=== PATIENT | male | born 1930 | race Caucasian/White ===

== ENCOUNTER 2016-11-04 16:00 | Inpatient (IN) | payer OTHER, MEDICARE ==
[2016-11-03 19:53] VITALS: BP 130/62; PULSE 82; RESP 16; TEMP 98.4; O2SAT 92
[~2016-11-04] VITALS: Ht 170.2 cm; Wt 71.3 kg
[2016-11-04 16:06] VITALS: BP 133/61; PULSE 68; RESP 17; TEMP 98.2; O2SAT 94
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
[2016-11-04] MEDS ORDERED: ONDANSETRON HCL 4 MG/2 ML VIAL IV ONE (16:30)
[2016-11-04] MEDS ORDERED: MORPHINE SULFATE 4 MG/ML INJ IV PUSH ONE (16:30)
[2016-11-04 16:50] LABS: AUTOMATED NEUTROPHIL # 6.9 TH/MM3 (1.8-7.7); BASOPHIL # 0.1 TH/MM3 (0-0.2); BASOPHIL % 1.8 % (0.0-2.0); EOSINOPHIL # 0.1 TH/MM3 (0-0.4); EOSINOPHIL % 1.3 % (0.0-4.0); HEMATOCRIT 40.1 % (39.0-51.0); LYMPH % 7.2 % (9.0-44.0); LYMPHOCYTE # 0.6 TH/MM3 (1.0-4.8); MEAN CELL VOLUME 86.9 FL (80.0-100.0); MEAN CORPUSCULAR HEMOGLOBIN 31.1 PG (27.0-34.0); MEAN CORPUSCULAR HGB CONC 35.9 % (32.0-36.0); MONO % 4.6 % (0.0-8.0); NEUT % 85.1 % (16.0-70.0); PLATELET COUNT 155 TH/MM3 (150-450); PROTHROMBIN TIME - PATIENT 10.8 SEC (9.8-11.6); RED BLOOD COUNT 4.61 MIL/MM3 (4.50-5.90); WHITE BLOOD COUNT 8.1 TH/MM3 (4.0-11.0)
--- NOTE | 2016-11-04 16:51 | RADRPT ---
EXAM DATE/TIME: 11/04/2016 16:22 [facility] COMPARISON: No previous studies available for comparison. INDICATIONS : Left hip pain after fall today. MEDICAL HISTORY : None. SURGICAL HISTORY : None. ENCOUNTER: Initial ACUITY: 1 day PAIN SCORE: 10/10 LOCATION: Left hip. FINDINGS: 5 images of the pelvis reveale anacute fracture involving the left hemipelvis. The fracture extends t hrough the acetabulum and ischium. No acetabular protrusio appreciated. Femoral heads remain in conta ct with the acetabula. A nondisplaced left inferior pubic ramus fracture noted. Calcified plaque invo lving the inflow vessels. Normal bowel gas pattern. CONCLUSION: 1. Acute fractures involving the left hemipelvis as detailed above. Alexandro Cervantes Jr., MD on November 04, 2016 at 16:48 Board Certified Radiologist. This report was verified electronically.
[2016-11-04 16:54] LABS: HEMO FLAGS DIFF FINAL
[2016-11-04 17:00] LABS: ALT (GPT) 22 U/L (12-78); ANION GAP 10 MEQ/L (5-15); AST (GOT) 20 U/L (15-37); BICARBONATE 21.4 MEQ/L (21.0-32.0); BLOOD UREA NITROGEN 11 MG/DL (7-18); CHLORIDE 104 MEQ/L (98-107); GLOMERULAR FILTRATION RATE 60 ML/MIN (>89); POTASSIUM 3.4 MEQ/L (3.5-5.1); SODIUM (NA) 135 MEQ/L (136-145)
[2016-11-04 17:01] LABS: ALKALINE PHOSPHATASE 123 U/L (45-117); TOTAL BILIRUBIN ADULT 0.9 MG/DL (0.2-1.0)
[2016-11-04] MEDS ORDERED: ONDANSETRON HCL 4 MG/2 ML VIAL IV PUSH PRN (18:15)
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
[2016-11-04] MEDS ORDERED: POTASSIUM CHLORIDE 20 MEQ CONTROLLED RELEASE TAB PO ONE (18:30)
[2016-11-04] MEDS ORDERED: HYDROmorphone HCL PF 1 MG/ML VIAL IV PUSH PRN (18:30)
[2016-11-04] MEDS ORDERED: ACETAMINOPHEN 325 MG TAB PO PRN (18:30)
[2016-11-04 18:42] VITALS: BP 133/59; PULSE 69; O2SAT 99
[2016-11-04] MEDS ORDERED: AMLO5TAB2 PO (19:02)
[2016-11-04] MEDS ORDERED: EQUALIQ7 (19:02)
[2016-11-04] MEDS ORDERED: ASPI1TAB69 PO (19:02)
[2016-11-04] MEDS ORDERED: ATOR40TA16 PO (19:02)
[2016-11-04] MEDS ORDERED: ATEN50TA PO (19:02)
[2016-11-04] MEDS: SODIUM CHLOR 0.9% 1000 ML INJ 1,000 ML IV SCH (19:39)
[2016-11-04] MEDS: HYDROmorphone HCL PF 1 MG/ML VIAL IV PUSH PRN (19:40)
[2016-11-04 19:41] VITALS: BP 123/60; PULSE 78; RESP 18; O2SAT 95
--- NOTE | 2016-11-04 20:26 | RADRPT ---
EXAM DATE/TIME: 11/04/2016 19:04 [facility] COMPARISON: HIP LEFT (AP&LAT 2/3VWS) W AP PELVIS, November 04, 2016, 16:22. INDICATIONS : Fall evaluate fracture. RADIATION DOSE: 32.70 CTDIvol (mGy) MEDICAL HISTORY : Cerebrovascular disease. Chronic obstructive pulmonary disease. Hypertension. Cardiac SURGICAL HISTORY : None. ENCOUNTER: Initial ACUITY: 1 day PAIN SCALE: 10/10 LOCATION: Left hip TECHNIQUE: Volumetric scanning of the hip was performed. Using automated exposure control and ad justment of the mA and/or kV according to patient size, radiation dose was kept as low as reasonably achievable to obtain optimal diagnostic quality images. FINDINGS: There is fracturing throughout the left pelvis. This includes fractures through the il ium that extends into the superior acetabulum. This fracture continues into the anterior and posteri or columns. There is also extension into the posterior left ischium. There is a separate fracture a t the midportion of the inferior pubic rami on the left. The hip joint is normally aligned. The pro ximal femurs are intact. No right-sided fractures are seen. There is some degenerative change at th e lower lumbar spine. The sacrum appears intact. CONCLUSION: Extensive fracturing of the left pelvis including to the superior aspect of the aceta bulum with extension to the anterior and posterior column and a separate fracture at the midportion o f the inferior pubic rami on the left. Arjun yDer MD on November 04, 2016 at 20:08 Board Certified Radiologist. This report was verified electronically.
[2016-11-05] VITALS (7 sets, daily range): BP systolic 112–131; BP diastolic 55–61; PULSE 61–76; RESP 16–18; TEMP 98.1–99.6; O2SAT 91–93
[2016-11-05] MEDS: HYDROmorphone HCL PF 1 MG/ML VIAL IV PUSH PRN ×2 (00:20→06:17)
[2016-11-05] MEDS ORDERED: WHEEMIS3 (06:37)
[2016-11-05] MEDS ORDERED: XARE10TA PO (06:37)
[2016-11-05] MEDS ORDERED: VITA2000 PO (06:37)
[2016-11-05] MEDS ORDERED: HYDR-3288 PO (06:37)
[2016-11-05] MEDS ORDERED: CALCTAB19 PO (06:37)
[2016-11-05] MEDS ORDERED: WALKER/ADULT/FO1 MIS (06:37)
[2016-11-05] MEDS ORDERED: ERGO1CAP30 PO (06:37)
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
[2016-11-05] MEDS: SODIUM CHLOR 0.9% 1000 ML INJ 1,000 ML IV SCH ×2 (08:20→09:48)
[2016-11-05] MEDS: RIVAROXABAN 10 MG TAB PO SCH (08:29)
[2016-11-05] MEDS: ACETAMINOPHEN/HYDROcodone 325 MG/7.5 MG TAB PO PRN ×3 (09:37→19:48)
--- NOTE | 2016-11-05 11:22 | HHI.PR ---
Subjective Remarks in no acute distress. pain is better today. no other new complaints. Objective Vitals Vital Signs Date Time Temp Pulse Resp B/P Pulse Ox O2 Delivery O2 Flow Rate FiO2 11/05/16 08:00 98.8 76 18 116/56 91 11/05/16 04:30 99.6 64 16 114/56 91 11/05/16 00:50 99.4 74 16 119/58 91 11/04/16 19:41 78 18 123/60 95 Room Air 11/04/16 18:42 69 133/59 99 Room Air 11/04/16 16:11 94 Nasal Cannula 11/04/16 16:06 98.2 68 17 133/61 94 I/O 11/04/16 11/04/16 11/04/16 11/05/16 11/05/16 11/05/16 07:00 15:00 23:00 07:00 15:00 23:00 Intake Total 120 ml Output Total 200 ml Balance -80 ml Intake Oral 120 ml Output Urine Total 200 ml # Bowel Movements 0 Result Diagram: 11/04/16 1620 11/04/16 1620 Imaging Last Impressions Lower Extremity CT 11/04/16 0000 Signed Impressions: Service Date/Time: Friday, November 04, 2016 19:04 - CONCLUSION: Extensive fracturing of the left pelvis including to the superior aspect of the acetabulum with extension to the anterior and posterior column and a separate fracture at the midportion of the inferior pubic rami on the left. Arjun Dyer MD Hip and Pelvis X-Ray 11/04/16 0000 Signed Impressions: Service Date/Time: Friday, November 04, 2016 16:22 - CONCLUSION: 1. Acute fractures involving the left hemipelvis as detailed above. Alexandro Cervantes Jr., MD Objective Remarks GENERAL: This is a well-nourished, well-developed patient, in no apparent distress. CARDIOVASCULAR: Regular rate and regular rhythm without murmurs, gallops, or rubs. RESPIRATORY: Clear to auscultation. Breath sounds equal bilaterally. No wheezes , rales, or rhonchi. GASTROINTESTINAL: Abdomen soft, non-tender, nondistended. Normal, active bowel sounds MUSCULOSKELETAL: Extremities without clubbing, cyanosis, or edema. NEURO: Alert & Oriented x4 to person, place, time, situation. Moves all ext x4 Procedures none Medications and IVs Current Medications Morphine Sulfate (Morphine Inj) 4 mg ONCE ONCE IV PUSH Last administered on 17:45; Start 11/04/16 at 16:30; Stop 11/04/16 at 16:31; Status DC Ondansetron HCl 4 mg 4 mg ONCE ONCE IV Last administered on 11/04/16 17:45; Start 11/04/16 at 16:30; Stop 11/04/16 at 16:31; Status DC Sodium Chloride (NS 1000 ml Inj) 1,000 ml @ 75 mls/hr [id number] IV Last administered on 11/04/16 19:39; Start 11/04/16 at 19:00 Ondansetron HCl (Zofran Inj) 4 mg Q8HR PRN IV PUSH NAUSEA; Start 11/04/16 at 18: 15 Hydromorphone HCl (Dilaudid Pf Inj) 0.2 mg Q4H PRN IV PUSH PAIN < 5; Start 11/04 at 18:30 Hydromorphone HCl (Dilaudid Pf Inj) 0.5 mg Q4H PRN IV PUSH PAIN 6-10 Last administered on 11/05/16 06:17; Start 11/04/16 at 18:30 Potassium Chloride (KCl) 20 meq ONCE ONCE PO Last administered on 11/04/16 19: 39; Start 11/04/16 at 18:30; Stop 11/04/16 at 18:31; Status DC Acetaminophen (Tylenol) 650 mg Q4H PRN PO FEVER/ HEADACHE; Start 11/04/16 at 18: 30 Rivaroxaban (Xarelto) 10 mg DAILY PO Last administered on 11/05/16 08:29; Start 11/05/16 at 09:00 Acetaminophen/ Hydrocodone Bitart (Gilchrist 7.5-325 Mg) 1 tab Q4H PRN PO PAIN 1- 5 Last administered on 11/05/16 09:37; Start 11/05/16 at 09:30 A/P Assessment and Plan A/P - left hemipelvis fracture after a fall continue with pain control- - ortho consulted and recommended non-op treatment. TTWB- consulted PT- -hypertension; BP's on low side; hold norvasc and decrease atenolol to 25 mg daily- continue to monitor and adjust the regimen as needed. -history of CVA and dyslipidemia hold aspirin; started on xarelto- continue statin -mild hypokalemia; will replace -DVT prophylaxis with Xarelto-per ortho Discharge Planning when ok with ortho- pending PT evaluation. Lisbet Wallace MD November 05, 2016 11:22
[2016-11-05] MEDS: ATORVASTATIN 40 MG TAB PO SCH (19:46)
[2016-11-05] MEDS ORDERED: CALCIUM/VITAMIN D 250 MG/125 U TAB PO SCH (21:00)
[2016-11-05] MEDS: CALCIUM/VITAMIN D 250 MG/125 U TAB PO SCH (21:58)
[2016-11-06 00:35] VITALS: BP 128/56; PULSE 66; RESP 18; TEMP 98.4; O2SAT 96
[2016-11-06] MEDS: ACETAMINOPHEN/HYDROcodone 325 MG/7.5 MG TAB PO PRN ×3 (04:21→22:24)
--- NOTE | 2016-11-06 06:26 | PD.ORT.PN ---
Subjective Subjective Remarks s/p left acetabulum fx with left sup/inf rami fxs doing well. reports soreness in hip. states was out of bed to chair yesterday. Objective Vitals Vital Signs Date Time Temp Pulse Resp B/P Pulse Ox O2 Delivery O2 Flow Rate FiO2 11/06/16 00:35 98.4 66 18 128/56 96 11/05/16 21:15 18 93 11/05/16 20:30 98.8 61 17 112/55 91 11/05/16 16:00 98.1 61 18 112/56 91 11/05/16 12:00 98.3 62 18 131/61 93 11/05/16 08:00 98.8 76 18 116/56 91 I/O 11/05/16 11/05/16 11/05/16 11/06/16 11/06/16 11/06/16 07:00 15:00 23:00 07:00 15:00 23:00 Intake Total 120 ml 1200 ml 480 ml 240 ml Output Total 200 ml 250 ml 250 ml Balance -80 ml 1200 ml 230 ml -10 ml Intake Oral 120 ml 1200 ml 480 ml 240 ml Output Urine Total 200 ml 250 ml 250 ml # Voids 2 # Bowel Movements 0 0 0 0 Result Diagram: 11/04/16 1620 11/04/16 1620 Objective Remarks LLE: pain with motion. NVI. minimal swelling. Assessment & Plan Assessment and Plan 1) left Acetabulum fx with left sup/inf rami fxs -nonop -TTWB -DC planning for home to [place] -PT for ambulating -will eval for possible DC home later this week. likely next week depending on progress. -normal diet -xarelto 10mg 1 po daily scheduled -continue to work with therapy. if doing well with therapy and pain controlled, will be able to be discharged home to [place]. if struggling, may require rehab Seth Duque November 06, 2016 06:26
[2016-11-06 08:00] VITALS: BP 135/56; PULSE 69; RESP 18; TEMP 98.9; O2SAT 90
[2016-11-06] MEDS: CALCIUM/VITAMIN D 250 MG/125 U TAB PO SCH ×2 (08:42→19:41)
[2016-11-06] MEDS: ATENOLOL 25 MG TAB PO SCH (08:43)
[2016-11-06] MEDS: RIVAROXABAN 10 MG TAB PO SCH (08:44)
[2016-11-06] MEDS: CHOLECALCIFEROL (VIT D3) 1000 UNIT TAB PO SCH (08:44)
--- NOTE | 2016-11-06 10:50 | HHI.PR ---
Subjective Remarks in no acute distress. pain is fairly controlled. no BM. no other complaints. family at the bedside. d/w the RN. Objective Vitals Vital Signs Date Time Temp Pulse Resp B/P Pulse Ox O2 Delivery O2 Flow Rate FiO2 11/06/16 08:00 98.9 69 18 135/56 90 11/06/16 00:35 98.4 66 18 128/56 96 11/05/16 21:15 18 93 11/05/16 20:30 98.8 61 17 112/55 91 11/05/16 16:00 98.1 61 18 112/56 91 11/05/16 12:00 98.3 62 18 131/61 93 I/O 11/05/16 11/05/16 11/05/16 11/06/16 11/06/16 11/06/16 07:00 15:00 23:00 07:00 15:00 23:00 Intake Total 120 ml 1200 ml 480 ml 240 ml Output Total 200 ml 250 ml 250 ml Balance -80 ml 1200 ml 230 ml -10 ml Intake Oral 120 ml 1200 ml 480 ml 240 ml Output Urine Total 200 ml 250 ml 250 ml # Voids 2 # Bowel Movements 0 0 0 0 Result Diagram: 11/04/16 1620 11/04/16 1620 Imaging Last Impressions Lower Extremity CT 11/04/16 0000 Signed Impressions: Service Date/Time: Friday, November 04, 2016 19:04 - CONCLUSION: Extensive fracturing of the left pelvis including to the superior aspect of the acetabulum with extension to the anterior and posterior column and a separate fracture at the midportion of the inferior pubic rami on the left. Arjun Dyer MD Hip and Pelvis X-Ray 11/04/16 0000 Signed Impressions: Service Date/Time: Friday, November 04, 2016 16:22 - CONCLUSION: 1. Acute fractures involving the left hemipelvis as detailed above. Alexandro Cervantes Jr., MD Objective Remarks GENERAL: elderly male, in no apparent distress. CARDIOVASCULAR: Regular rate and regular rhythm without murmurs, gallops, or rubs. RESPIRATORY: Clear to auscultation. Breath sounds equal bilaterally. No wheezes , rales, or rhonchi. GASTROINTESTINAL: Abdomen soft, non-tender, nondistended. Normal, active bowel sounds MUSCULOSKELETAL: Extremities without clubbing, cyanosis, or edema. NEURO: Alert & Oriented x4 to person, place, time, situation. Moves all ext x4 Procedures none Medications and IVs Current Medications Morphine Sulfate (Morphine Inj) 4 mg ONCE ONCE IV PUSH Last administered on 17:45; Start 11/04/16 at 16:30; Stop 11/04/16 at 16:31; Status DC Ondansetron HCl 4 mg 4 mg ONCE ONCE IV Last administered on 11/04/16 17:45; Start 11/04/16 at 16:30; Stop 11/04/16 at 16:31; Status DC Sodium Chloride (NS 1000 ml Inj) 1,000 ml @ 75 mls/hr [id number] IV Last administered on 11/04/16 19:39; Start 11/04/16 at 19:00; Stop 11/05/16 at 11:24; Status DC Ondansetron HCl (Zofran Inj) 4 mg Q8HR PRN IV PUSH NAUSEA; Start 11/04/16 at 18: 15 Hydromorphone HCl (Dilaudid Pf Inj) 0.2 mg Q4H PRN IV PUSH BREAKTHROUGH PAIN; Start 11/04/16 at 18:30 Hydromorphone HCl (Dilaudid Pf Inj) 0.5 mg Q4H PRN IV PUSH PAIN 6-10 Last administered on 11/05/16 06:17; Start 11/04/16 at 18:30; Stop 11/05/16 at 11:25; Status DC Potassium Chloride (KCl) 20 meq ONCE ONCE PO Last administered on 11/04/16 19: 39; Start 11/04/16 at 18:30; Stop 11/04/16 at 18:31; Status DC Acetaminophen (Tylenol) 650 mg Q4H PRN PO FEVER/ HEADACHE; Start 11/04/16 at 18: 30 Rivaroxaban (Xarelto) 10 mg DAILY PO Last administered on 11/06/16 08:44; Start 11/05/16 at 09:00 Acetaminophen/ Hydrocodone Bitart ([place] 7.5-325 Mg) 1 tab Q4H PRN PO PAIN 1- 5 Last administered on 11/05/16 09:37; Start 11/05/16 at 09:30 Atorvastatin Calcium (Lipitor) 40 mg HS PO Last administered on 11/05/16 19:46 ; Start 11/05/16 at 21:00 Cholecalciferol (Vitamin D3) 2,000 units DAILY PO Last administered on 08:44; Start 11/06/16 at 09:00 Calcium/Vitamin D (Oscal-D 250-125) 2 mg BID PO ; Start 11/05/16 at 21:00; Stop 11/05/16 at 21:52; Status DC Atenolol (Tenormin) 25 mg DAILY PO Last administered on 11/06/16 08:43; Start 11/06/16 at 09:00 Acetaminophen/ Hydrocodone Bitart ([place] 7.5-325 Mg) 2 tab Q4H PRN PO PAIN > 5 Last administered on 11/06/16 08:45; Start 11/05/16 at 11:30 Calcium/Vitamin D (Oscal-D 250-125) 500 mg BID PO Last administered on 08:42; Start 11/05/16 at 22:00 A/P Assessment and Plan A/P - left hemipelvis fracture after a fall continue with pain control- - ortho consulted and recommended non-op treatment. TTWB- consulted PT- -hypertension; BP's on low side; continue to hold norvasc - continue atenolol to 25 mg daily- continue to monitor and adjust the regimen as needed. -history of CVA and dyslipidemia hold aspirin; started on xarelto- continue statin -mild hypokalemia; replaced. -DVT prophylaxis with Xarelto-per ortho Discharge Planning d/w the family at the bedside. will consult case management for dc planning to rehab. Lisbet Wallace MD November 06, 2016 10:50
[2016-11-06] MEDS ORDERED: ATEN25TA PO (10:52)
[2016-11-06] MEDS ORDERED: MAGNESIUM HYDROXIDE SUSP 30 ML CUP PO PRN (11:00)
[2016-11-06] MEDS ORDERED: DOCUSATE SODIUM 100 MG CAP PO PRN (11:00)
[2016-11-06 12:00] VITALS: BP 149/61; PULSE 83; RESP 18; TEMP 97.5; O2SAT 90
[2016-11-06 16:00] VITALS: BP 150/63; PULSE 62; RESP 18; TEMP 97.6; O2SAT 92
[2016-11-06] MEDS: ATORVASTATIN 40 MG TAB PO SCH (19:40)
[2016-11-06 20:04] VITALS: BP 142/63; PULSE 61; RESP 18; TEMP 98.5; O2SAT 92
[2016-11-07] VITALS: BP 117/54; PULSE 62; RESP 17; TEMP 98.8; O2SAT 93
[2016-11-07] MEDS: ACETAMINOPHEN/HYDROcodone 325 MG/7.5 MG TAB PO PRN ×3 (05:54→18:00)
--- NOTE | 2016-11-07 06:41 | PD.ORT.PN ---
Subjective Subjective Remarks Pain controlled. Worked with physical therapy yesterday. Difficulty ambulating with toe-touch weightbearing Objective Vitals Vital Signs Date Time Temp Pulse Resp B/P Pulse Ox O2 Delivery O2 Flow Rate FiO2 11/07/16 00:00 98.8 62 17 117/54 93 11/06/16 21:22 Nasal Cannula 2.00 11/06/16 20:04 98.5 61 18 142/63 92 11/06/16 16:00 97.6 62 18 150/63 92 11/06/16 12:00 97.5 83 18 149/61 90 11/06/16 08:00 98.9 69 18 135/56 90 I/O 11/06/16 11/06/16 11/06/16 11/07/16 11/07/16 11/07/16 07:00 15:00 23:00 07:00 15:00 23:00 Intake Total 240 ml 980 ml 480 ml 360 ml Output Total 250 ml 300 ml Balance -10 ml 980 ml 480 ml 60 ml Intake Oral 240 ml 980 ml 480 ml 360 ml Output Urine Total 250 ml 300 ml # Voids 3 2 # Bowel Movements 0 0 Result Diagram: 11/04/16 1620 11/04/16 1620 Objective Remarks Left lower extremity: Pain with motion of hip. No pain with ankle or knee range of motion. Distally intact sensation with good capillary refills. Strong dorsiflexion plantar flexion of foot Assessment & Plan Assessment and Plan 1) left Acetabulum fx with left sup/inf rami fxs -nonop -TTWB -DC planning to rehabilitation then to home in [place] -PT for ambulating -normal diet -xarelto 10mg 1 po daily scheduled Orthopedically cleared for discharge to rehabilitation If still in town in 2 weeks we will re-x-ray and evaluate acetabulum fracture Manuel Chaudhari Jr. November 07, 2016 06:41
[2016-11-07 08:00] VITALS: BP 119/58; PULSE 62; RESP 12; TEMP 99.1; O2SAT 91
[2016-11-07] MEDS: CALCIUM/VITAMIN D 250 MG/125 U TAB PO SCH ×2 (08:21→20:37)
[2016-11-07] MEDS: RIVAROXABAN 10 MG TAB PO SCH (08:21)
[2016-11-07] MEDS: ATENOLOL 25 MG TAB PO SCH (08:26)
[2016-11-07] MEDS: CHOLECALCIFEROL (VIT D3) 1000 UNIT TAB PO SCH (08:35)
--- NOTE | 2016-11-07 08:43 | HHI.PR ---
Subjective Remarks resting comfortably with no distress. pain is fairly controlled. no other complaints. Objective Vitals Vital Signs Date Time Temp Pulse Resp B/P Pulse Ox O2 Delivery O2 Flow Rate FiO2 11/07/16 08:00 99.1 62 12 119/58 91 11/07/16 00:00 98.8 62 17 117/54 93 11/06/16 21:22 Nasal Cannula 2.00 11/06/16 20:04 98.5 61 18 142/63 92 11/06/16 16:00 97.6 62 18 150/63 92 11/06/16 12:00 97.5 83 18 149/61 90 I/O 11/06/16 11/06/16 11/06/16 11/07/16 11/07/16 11/07/16 07:00 15:00 23:00 07:00 15:00 23:00 Intake Total 240 ml 980 ml 480 ml 360 ml Output Total 250 ml 300 ml Balance -10 ml 980 ml 480 ml 60 ml Intake Oral 240 ml 980 ml 480 ml 360 ml Output Urine Total 250 ml 300 ml # Voids 3 2 # Bowel Movements 0 0 Result Diagram: 11/04/16 1620 11/04/16 1620 Imaging Last Impressions Lower Extremity CT 11/04/16 0000 Signed Impressions: Service Date/Time: Friday, November 04, 2016 19:04 - CONCLUSION: Extensive fracturing of the left pelvis including to the superior aspect of the acetabulum with extension to the anterior and posterior column and a separate fracture at the midportion of the inferior pubic rami on the left. Arjun Dyer MD Hip and Pelvis X-Ray 11/04/16 0000 Signed Impressions: Service Date/Time: Friday, November 04, 2016 16:22 - CONCLUSION: 1. Acute fractures involving the left hemipelvis as detailed above. Alexandro Cervantes Jr., MD Objective Remarks GENERAL: elderly male, in no apparent distress. CARDIOVASCULAR: Regular rate and regular rhythm without murmurs, gallops, or rubs. RESPIRATORY: Clear to auscultation. Breath sounds equal bilaterally. No wheezes , rales, or rhonchi. GASTROINTESTINAL: Abdomen soft, non-tender, nondistended. Normal, active bowel sounds MUSCULOSKELETAL: Extremities without clubbing, cyanosis, or edema. NEURO: Alert & Oriented x4 to person, place, time, situation. Moves all ext x4 Procedures none Medications and IVs Current Medications Morphine Sulfate (Morphine Inj) 4 mg ONCE ONCE IV PUSH Last administered on 17:45; Start 11/04/16 at 16:30; Stop 11/04/16 at 16:31; Status DC Ondansetron HCl 4 mg 4 mg ONCE ONCE IV Last administered on 11/04/16 17:45; Start 11/04/16 at 16:30; Stop 11/04/16 at 16:31; Status DC Sodium Chloride (NS 1000 ml Inj) 1,000 ml @ 75 mls/hr [id number] IV Last administered on 11/04/16 19:39; Start 11/04/16 at 19:00; Stop 11/05/16 at 11:24; Status DC Ondansetron HCl (Zofran Inj) 4 mg Q8HR PRN IV PUSH NAUSEA; Start 11/04/16 at 18: 15 Hydromorphone HCl (Dilaudid Pf Inj) 0.2 mg Q4H PRN IV PUSH BREAKTHROUGH PAIN; Start 11/04/16 at 18:30 Hydromorphone HCl (Dilaudid Pf Inj) 0.5 mg Q4H PRN IV PUSH PAIN 6-10 Last administered on 11/05/16 06:17; Start 11/04/16 at 18:30; Stop 11/05/16 at 11:25; Status DC Potassium Chloride (KCl) 20 meq ONCE ONCE PO Last administered on 11/04/16 19: 39; Start 11/04/16 at 18:30; Stop 11/04/16 at 18:31; Status DC Acetaminophen (Tylenol) 650 mg Q4H PRN PO FEVER/ HEADACHE; Start 11/04/16 at 18: 30 Rivaroxaban (Xarelto) 10 mg DAILY PO Last administered on 11/06/16 08:44; Start 11/05/16 at 09:00 Acetaminophen/ Hydrocodone Bitart ([place] 7.5-325 Mg) 1 tab Q4H PRN PO PAIN 1- 5 Last administered on 11/07/16 05:54; Start 11/05/16 at 09:30 Atorvastatin Calcium (Lipitor) 40 mg HS PO Last administered on 11/06/16 19:40 ; Start 5/3/17 at 21:00 Cholecalciferol (Vitamin D3) 2,000 units DAILY PO Last administered on 08:44; Start 11/06/16 at 09:00 Calcium/Vitamin D (Oscal-D 250-125) 2 mg BID PO ; Start 11/05/16 at 21:00; Stop 11/05/16 at 21:52; Status DC Atenolol (Tenormin) 25 mg DAILY PO Last administered on 11/06/16 08:43; Start 11/06/16 at 09:00 Acetaminophen/ Hydrocodone Bitart ([place] 7.5-325 Mg) 2 tab Q4H PRN PO PAIN > 5 Last administered on 11/06/16 08:45; Start 11/05/16 at 11:30 Calcium/Vitamin D (Oscal-D 250-125) 500 mg BID PO Last administered on 19:41; Start 11/05/16 at 22:00 Docusate Sodium (Colace) 100 mg BID PRN PO CONSTIPATION; Start 11/06/16 at 11:00 Magnesium Hydroxide (Milk Of MagnCampanda Liq) 30 ml DAILY PRN PO CONSTIPATION Last administered on 11/07/16 05:54; Start 11/06/16 at 11:00 A/P Assessment and Plan A/P - left hemipelvis fracture after a fall continue with pain control- - ortho consulted and recommended non-op treatment. TTWB- consulted PT- -hypertension; continue to hold norvasc - continue atenolol to 25 mg daily- -history of CVA and dyslipidemia hold aspirin; started on xarelto- continue statin -mild hypokalemia; replaced. -DVT prophylaxis with Xarelto-per ortho Discharge Planning previously d/w the family. dc to SNF when arrangements made. see med list. f/u with pcp and ortho. d/w the patient and case management. time spent 35 min. Lisbet Wallace MD November 07, 2016 08:43
--- NOTE | 2016-11-07 08:44 | HHI.DCPOC ---
Discharge Care Plan Diagnosis: (1) Fracture, pelvis closed Your Health Problems Are: Difficulty with ADL Goals to Promote Your Health * To prevent worsening of your condition and complications * To maintain your health at the optimal level Directions to Meet Your Goals Take your medications as prescribed Follow your dietary instruction Follow activity as directed Keep your appointments as scheduled Take your immunizations and boosters as scheduled If your symptoms worsen call your PCP, if no PCP go to Urgent Care Center or Emergency Room Smoking is Dangerous to Your Health. Avoid second hand smoke Call the 24-hour hour crisis hotline for domestic abuse at Lisbet Wallace MD November 07, 2016 08:44
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
[2016-11-07] MEDS ORDERED: BISACODYL 10 MG SUPP RECTAL PRN (11:45)
[2016-11-07] MEDS ORDERED: BISACODYL 10 MG SUPP RECTAL ONE (11:45)
[2016-11-07 12:00] VITALS: BP 167/74; PULSE 67; RESP 19; TEMP 96.6; O2SAT 92
[2016-11-07] MEDS ORDERED: DO NOT ADM ANY ANTICOAGULANT DRUGS PRN (12:00)
[2016-11-07 16:00] VITALS: BP 151/66; PULSE 62; RESP 14; TEMP 98.5; O2SAT 91
[2016-11-07 19:00] VITALS: BP 153/63; PULSE 64; RESP 17; TEMP 99.5; O2SAT 93
[2016-11-07] MEDS: ATORVASTATIN 40 MG TAB PO SCH (20:37)
[2016-11-07 23:39] VITALS: BP 111/56; PULSE 62; RESP 17; TEMP 98.8; O2SAT 93
[2016-11-08] MEDS: ACETAMINOPHEN/HYDROcodone 325 MG/7.5 MG TAB PO PRN ×5 (03:00→21:59)
[2016-11-08 04:00] VITALS: BP 135/62; PULSE 64; RESP 19; TEMP 99.5; O2SAT 92
--- NOTE | 2016-11-08 06:51 | PD.ORT.PN ---
Subjective Subjective Remarks Pain controlled. Worked with physical therapy yesterday. Difficulty ambulating with toe-touch weightbearing. States that he thinks he will be discharged to rehabilitation on Thursday Objective Vitals Vital Signs Date Time Temp Pulse Resp B/P Pulse Ox O2 Delivery O2 Flow Rate FiO2 11/08/16 04:00 99.5 64 19 135/62 92 11/07/16 23:39 98.8 62 17 111/56 93 11/07/16 20:36 93 Nasal Cannula 2.00 11/07/16 19:00 99.5 64 17 153/63 93 11/07/16 16:00 98.5 62 14 151/66 91 11/07/16 12:00 96.6 67 19 167/74 92 11/07/16 08:00 99.1 62 12 119/58 91 I/O 11/07/16 11/07/16 11/07/16 11/08/16 11/08/16 11/08/16 07:00 15:00 23:00 07:00 15:00 23:00 Intake Total 360 ml 720 ml 200 ml 300 ml Output Total 300 ml 400 ml 140 ml 320 ml Balance 60 ml 320 ml 60 ml -20 ml Intake Oral 360 ml 720 ml 200 ml 300 ml Output Urine Total 300 ml 400 ml 140 ml 320 ml # Voids 3 # Bowel Movements 2 0 0 Result Diagram: 11/04/16 1620 11/04/16 1620 Objective Remarks Left lower extremity: Pain with motion of hip. No pain with ankle or knee range of motion. Distally intact sensation with good capillary refills. Strong dorsiflexion plantar flexion of foot Assessment & Plan Assessment and Plan 1) left Acetabulum fx with left sup/inf rami fxs -nonop -TTWB -DC planning to rehabilitation then to home in [place] -PT for ambulating -normal diet -xarelto 10mg 1 po daily scheduled Orthopedically cleared for discharge to rehabilitation If still in town in 2 weeks we will re-x-ray and evaluate acetabulum fracture Manuel Chaudhari Jr. November 08, 2016 06:51
[2016-11-08 08:00] VITALS: BP 158/72; PULSE 65; RESP 18; TEMP 99.3; O2SAT 91
[2016-11-08] MEDS: RIVAROXABAN 10 MG TAB PO SCH (08:23)
[2016-11-08] MEDS: ATENOLOL 25 MG TAB PO SCH (08:23)
[2016-11-08] MEDS: CALCIUM/VITAMIN D 250 MG/125 U TAB PO SCH ×2 (08:23→21:59)
[2016-11-08] MEDS: CHOLECALCIFEROL (VIT D3) 1000 UNIT TAB PO SCH (08:23)
--- NOTE | 2016-11-08 09:19 | HHI.PR ---
Subjective Remarks resting comfortably with no distress. pain is mild. reports some dysuria- otherwise he says that he's feeling better today. Objective Vitals Vital Signs Date Time Temp Pulse Resp B/P Pulse Ox O2 Delivery O2 Flow Rate FiO2 11/08/16 08:00 99.3 65 18 158/72 91 11/08/16 04:00 99.5 64 19 135/62 92 11/07/16 23:39 98.8 62 17 111/56 93 11/07/16 20:36 93 Nasal Cannula 2.00 11/07/16 19:00 99.5 64 17 153/63 93 11/07/16 16:00 98.5 62 14 151/66 91 11/07/16 12:00 96.6 67 19 167/74 92 I/O 11/07/16 11/07/16 11/07/16 11/08/16 11/08/16 11/08/16 07:00 15:00 23:00 07:00 15:00 23:00 Intake Total 360 ml 720 ml 200 ml 300 ml Output Total 300 ml 400 ml 140 ml 320 ml Balance 60 ml 320 ml 60 ml -20 ml Intake Oral 360 ml 720 ml 200 ml 300 ml Output Urine Total 300 ml 400 ml 140 ml 320 ml # Voids 3 # Bowel Movements 2 0 0 Result Diagram: 11/04/16 1620 11/04/16 1620 Imaging Last Impressions Lower Extremity CT 11/04/16 0000 Signed Impressions: Service Date/Time: Friday, November 04, 2016 19:04 - CONCLUSION: Extensive fracturing of the left pelvis including to the superior aspect of the acetabulum with extension to the anterior and posterior column and a separate fracture at the midportion of the inferior pubic rami on the left. Arjun Dyer MD Hip and Pelvis X-Ray 11/04/16 0000 Signed Impressions: Service Date/Time: Friday, November 04, 2016 16:22 - CONCLUSION: 1. Acute fractures involving the left hemipelvis as detailed above. Alexandro Cervantes Jr., MD Objective Remarks GENERAL: elderly male, in no apparent distress. CARDIOVASCULAR: Regular rate and regular rhythm without murmurs, gallops, or rubs. RESPIRATORY: Clear to auscultation. Breath sounds equal bilaterally. No wheezes , rales, or rhonchi. GASTROINTESTINAL: Abdomen soft, non-tender, nondistended. Normal, active bowel sounds MUSCULOSKELETAL: Extremities without clubbing, cyanosis, or edema. NEURO: Alert & Oriented x4 to person, place, time, situation. Moves all ext x4 Procedures none Medications and IVs Current Medications Morphine Sulfate (Morphine Inj) 4 mg ONCE ONCE IV PUSH Last administered on 17:45; Start 11/04/16 at 16:30; Stop 11/04/16 at 16:31; Status DC Ondansetron HCl 4 mg 4 mg ONCE ONCE IV Last administered on 11/04/16 17:45; Start 11/04/16 at 16:30; Stop 11/04/16 at 16:31; Status DC Sodium Chloride (NS 1000 ml Inj) 1,000 ml @ 75 mls/hr [id number] IV Last administered on 11/04/16 19:39; Start 11/04/16 at 19:00; Stop 11/05/16 at 11:24; Status DC Ondansetron HCl (Zofran Inj) 4 mg Q8HR PRN IV PUSH NAUSEA; Start 11/04/16 at 18: 15 Hydromorphone HCl (Dilaudid Pf Inj) 0.2 mg Q4H PRN IV PUSH BREAKTHROUGH PAIN; Start 11/04/16 at 18:30 Hydromorphone HCl (Dilaudid Pf Inj) 0.5 mg Q4H PRN IV PUSH PAIN 6-10 Last administered on 11/05/16 06:17; Start 11/04/16 at 18:30; Stop 11/05/16 at 11:25; Status DC Potassium Chloride (KCl) 20 meq ONCE ONCE PO Last administered on 11/04/16 19: 39; Start 11/04/16 at 18:30; Stop 11/04/16 at 18:31; Status DC Acetaminophen (Tylenol) 650 mg Q4H PRN PO FEVER/ HEADACHE; Start 11/04/16 at 18: 30 Rivaroxaban (Xarelto) 10 mg DAILY PO Last administered on 11/08/16 08:23; Start 11/05/16 at 09:00 Acetaminophen/ Hydrocodone Bitart ([place] 7.5-325 Mg) 1 tab Q4H PRN PO PAIN 1- 5 Last administered on 11/08/16 08:23; Start 11/05/16 at 09:30 Atorvastatin Calcium (Lipitor) 40 mg HS PO Last administered on 11/07/16 20:37 ; Start 11/05/16 at 21:00 Cholecalciferol (Vitamin D3) 2,000 units DAILY PO Last administered on 08:23; Start 11/06/16 at 09:00 Calcium/Vitamin D (Oscal-D 250-125) 2 mg BID PO ; Start 11/05/16 at 21:00; Stop 11/05/16 at 21:52; Status DC Atenolol (Tenormin) 25 mg DAILY PO Last administered on 11/08/16 08:23; Start 11/06/16 at 09:00 Acetaminophen/ Hydrocodone Bitart ([place] 7.5-325 Mg) 2 tab Q4H PRN PO PAIN > 5 Last administered on 11/06/16 08:45; Start 11/05/16 at 11:30 Calcium/Vitamin D (Oscal-D 250-125) 500 mg BID PO Last administered on 08:23; Start 11/05/16 at 22:00 Docusate Sodium (Colace) 100 mg BID PRN PO CONSTIPATION Last administered on 08:21; Start 11/06/16 at 11:00 Magnesium Hydroxide (Milk Of Magnesia Liq) 30 ml DAILY PRN PO CONSTIPATION Last administered on 11/07/16 05:54; Start 11/06/16 at 11:00 Bisacodyl (Dulcolax Supp) 10 mg NOW ONCE RECTAL ; Start 11/07/16 at 11:45; Stop 11/07/16 at 11:46; Status DC Bisacodyl (Dulcolax Supp) 10 mg DAILY PRN RECTAL UNTIL BM; Start 11/07/16 at 11: 45 Miscellaneous Information ALL NURSING DEPARTME... UNSCH PRN .XX SEE LABEL COMMENTS; Start 11/07/16 at 12:00; Stop 11/08/16 at 11:59 A/P Assessment and Plan A/P - left hemipelvis fracture after a fall continue with pain control- - ortho consulted and recommended non-op treatment. TTWB- consulted PT- -dysuria- check UA -hypertension; continue atenolol to 25 mg daily- -history of CVA and dyslipidemia hold aspirin; started on xarelto- continue statin -mild hypokalemia; replaced. -DVT prophylaxis with Xarelto-per ortho Discharge Planning previously d/w the family. dc to SNF when arrangements made. see med list. f/u with pcp and ortho. d/w the patient and case management. time spent 35 min. Lisbet Wallace MD November 08, 2016 09:19
[2016-11-08 10:56] LABS: BACTERIA, URINE OCC /hpf; BLOOD, URINE MOD (NEG); COMMENT (UR) CULTURE INDICATED; CULTURE IF INDICATED CULTURE INDICATED; GLUCOSE,URINE NEG (NEG); KETONE, URINE NEG (NEG); MUCUS URINE FEW /lpf (OCC); NITRITE,URINE NEG (NEG); PH, URINE 5.5 (5.0-8.5); URINE COLOR YELLOW (YELLW/STRAW)
[2016-11-08 11:55] VITALS: BP 142/59; PULSE 61; RESP 18; TEMP 97.9; O2SAT 91
[2016-11-08] MEDS ORDERED: CIPROFLOXACIN 250 MG TAB PO SCH (12:15)
[2016-11-08 16:00] VITALS: BP 147/62; PULSE 59; RESP 18; TEMP 97.4; O2SAT 93
[2016-11-08] MEDS: NITROFURANTOIN MONOHYD MACROCR 100 MG CAP PO SCH (17:36)
[2016-11-08 20:15] VITALS: BP 158/63; PULSE 65; RESP 17; TEMP 98.1; O2SAT 93
[2016-11-08] MEDS: ATORVASTATIN 40 MG TAB PO SCH (21:59)
[2016-11-09 00:15] VITALS: BP 153/66; PULSE 66; RESP 17; TEMP 97.4; O2SAT 92
[2016-11-09 08:00] VITALS: BP 162/70; PULSE 65; RESP 18; TEMP 99.2; O2SAT 93
[2016-11-09] MEDS: CHOLECALCIFEROL (VIT D3) 1000 UNIT TAB PO SCH (08:21)
[2016-11-09] MEDS: ATENOLOL 25 MG TAB PO SCH (08:21)
[2016-11-09] MEDS: CALCIUM/VITAMIN D 250 MG/125 U TAB PO SCH ×2 (08:21→20:39)
[2016-11-09] MEDS: NITROFURANTOIN MONOHYD MACROCR 100 MG CAP PO SCH ×2 (08:21→17:42)
[2016-11-09] MEDS: ACETAMINOPHEN/HYDROcodone 325 MG/7.5 MG TAB PO PRN ×3 (08:21→23:14)
[2016-11-09] MEDS: RIVAROXABAN 10 MG TAB PO SCH (08:22)
--- NOTE | 2016-11-09 08:36 | HHI.PR ---
Subjective Remarks resting comfortably with no distress. pain is controlled. dysuria is better. no other complaints. Objective Vitals Vital Signs Date Time Temp Pulse Resp B/P Pulse Ox O2 Delivery O2 Flow Rate FiO2 11/09/16 08:00 99.2 65 18 162/70 93 11/09/16 01:53 Nasal Cannula 2.00 11/09/16 00:15 97.4 66 17 153/66 92 11/08/16 23:09 18 11/08/16 20:15 98.1 65 17 158/63 93 11/08/16 16:00 97.4 59 18 147/62 93 11/08/16 11:55 97.9 61 18 142/59 91 I/O 11/08/16 11/08/16 11/08/16 11/09/16 11/09/16 11/09/16 07:00 15:00 23:00 07:00 15:00 23:00 Intake Total 300 ml 950 ml 480 ml 240 ml Output Total 320 ml 400 ml 200 ml Balance -20 ml 950 ml 80 ml 40 ml Intake Oral 300 ml 950 ml 480 ml 240 ml Output Urine Total 320 ml 400 ml 200 ml # Voids 3 # Bowel Movements 0 1 0 0 Imaging Last Impressions Lower Extremity CT 11/04/16 0000 Signed Impressions: Service Date/Time: Friday, November 04, 2016 19:04 - CONCLUSION: Extensive fracturing of the left pelvis including to the superior aspect of the acetabulum with extension to the anterior and posterior column and a separate fracture at the midportion of the inferior pubic rami on the left. Arjun Dyer MD Hip and Pelvis X-Ray 11/04/16 0000 Signed Impressions: Service Date/Time: Friday, November 04, 2016 16:22 - CONCLUSION: 1. Acute fractures involving the left hemipelvis as detailed above. Alexandro Cervantes Jr., MD Objective Remarks GENERAL: elderly male, in no apparent distress. CARDIOVASCULAR: Regular rate and regular rhythm without murmurs, gallops, or rubs. RESPIRATORY: Clear to auscultation. Breath sounds equal bilaterally. No wheezes , rales, or rhonchi. GASTROINTESTINAL: Abdomen soft, non-tender, nondistended. Normal, active bowel sounds MUSCULOSKELETAL: Extremities without clubbing, cyanosis, or edema. NEURO: Alert & Oriented x4 to person, place, time, situation. Moves all ext x4 Procedures none Medications and IVs Current Medications Morphine Sulfate (Morphine Inj) 4 mg ONCE ONCE IV PUSH Last administered on 17:45; Start 11/04/16 at 16:30; Stop 11/04/16 at 16:31; Status DC Ondansetron HCl 4 mg 4 mg ONCE ONCE IV Last administered on 11/04/16 17:45; Start 11/04/16 at 16:30; Stop 11/04/16 at 16:31; Status DC Sodium Chloride (NS 1000 ml Inj) 1,000 ml @ 75 mls/hr [id number] IV Last administered on 11/04/16 19:39; Start 11/04/16 at 19:00; Stop 11/05/16 at 11:24; Status DC Ondansetron HCl (Zofran Inj) 4 mg Q8HR PRN IV PUSH NAUSEA; Start 11/04/16 at 18: 15 Hydromorphone HCl (Dilaudid Pf Inj) 0.2 mg Q4H PRN IV PUSH BREAKTHROUGH PAIN; Start 11/04/16 at 18:30 Hydromorphone HCl (Dilaudid Pf Inj) 0.5 mg Q4H PRN IV PUSH PAIN 6-10 Last administered on 11/05/16 06:17; Start 11/04/16 at 18:30; Stop 11/05/16 at 11:25; Status DC Potassium Chloride (KCl) 20 meq ONCE ONCE PO Last administered on 11/04/16 19: 39; Start 11/04/16 at 18:30; Stop 11/04/16 at 18:31; Status DC Acetaminophen (Tylenol) 650 mg Q4H PRN PO FEVER/ HEADACHE; Start 11/04/16 at 18: 30 Rivaroxaban (Xarelto) 10 mg DAILY PO Last administered on 11/09/16 08:22; Start 11/05/16 at 09:00 Acetaminophen/ Hydrocodone Bitart ([place] 7.5-325 Mg) 1 tab Q4H PRN PO PAIN 1- 5 Last administered on 11/09/16 08:21; Start 11/05/16 at 09:30 Atorvastatin Calcium (Lipitor) 40 mg HS PO Last administered on 11/08/16 21:59 ; Start 11/05/16 at 21:00 Cholecalciferol (Vitamin D3) 2,000 units DAILY PO Last administered on 08:21; Start 11/06/16 at 09:00 Calcium/Vitamin D (Oscal-D 250-125) 2 mg BID PO ; Start 11/05/16 at 21:00; Stop 11/05/16 at 21:52; Status DC Atenolol (Tenormin) 25 mg DAILY PO Last administered on 11/09/16 08:21; Start 11/06/16 at 09:00 Acetaminophen/ Hydrocodone Bitart ([place] 7.5-325 Mg) 2 tab Q4H PRN PO PAIN > 5 Last administered on 11/06/16 08:45; Start 11/05/16 at 11:30 Calcium/Vitamin D (Oscal-D 250-125) 500 mg BID PO Last administered on 08:21; Start 11/05/16 at 22:00 Docusate Sodium (Colace) 100 mg BID PRN PO CONSTIPATION Last administered on 08:21; Start 11/06/16 at 11:00 Magnesium Hydroxide (Milk Of Magnesia Liq) 30 ml DAILY PRN PO CONSTIPATION Last administered on 11/07/16 05:54; Start 11/06/16 at 11:00 Bisacodyl (Dulcolax Supp) 10 mg NOW ONCE RECTAL ; Start 11/07/16 at 11:45; Stop 11/07/16 at 11:46; Status DC Bisacodyl (Dulcolax Supp) 10 mg DAILY PRN RECTAL UNTIL BM; Start 11/07/16 at 11: 45 Miscellaneous Information ALL NURSING DEPARTME... UNSCH PRN .XX SEE LABEL COMMENTS; Start 11/07/16 at 12:00; Stop 11/08/16 at 11:59; Status DC Ciprofloxacin (Cipro) 250 mg Q12HR PO ; Start 11/08/16 at 12:15; Stop 11/08/16 at 14:57; Status DC Nitrofurantoin Macrocrystals (Macrobid) 100 mg BIDPC PO Last administered on 08:21; Start 11/08/16 at 18:00 A/P Assessment and Plan A/P - left hemipelvis fracture after a fall continue with pain control- - ortho consulted and recommended non-op treatment. TTWB- consulted PT- -possible UTI- started on abx- will follow the UC. -hypertension; continue atenolol 25 mg daily- -history of CVA and dyslipidemia hold aspirin; started on xarelto- continue statin -mild hypokalemia; replaced. -DVT prophylaxis with Xarelto-per ortho Discharge Planning previously d/w the family. dc to SNF when arrangements made. see med list. f/u with pcp and ortho. d/w the patient and case management. time spent 35 min. Lisbet Wallace MD November 09, 2016 08:36
[2016-11-09 12:00] VITALS: BP 164/72; PULSE 65; RESP 21; TEMP 99.2; O2SAT 90
[2016-11-09 16:00] VITALS: BP 176/75; PULSE 70; RESP 19; TEMP 98.5; O2SAT 90
[2016-11-09 20:00] VITALS: BP 146/65; PULSE 65; RESP 17; TEMP 97.4; O2SAT 92
[2016-11-09] MEDS: ATORVASTATIN 40 MG TAB PO SCH (20:39)
[2016-11-10] VITALS: BP 156/69; PULSE 60; RESP 17; TEMP 98.4; O2SAT 92
--- NOTE | 2016-11-10 06:39 | PD.ORT.PN ---
Subjective Subjective Remarks Pain controlled. Worked with physical therapy yesterday. Difficulty ambulating with toe-touch weightbearing. States that he thinks he will be discharged to rehabilitation on Thursday Objective Vitals Vital Signs Date Time Temp Pulse Resp B/P Pulse Ox O2 Delivery O2 Flow Rate FiO2 11/10/16 00:14 18 11/10/16 00:00 98.4 60 17 156/69 92 11/09/16 22:00 Nasal Cannula 1.00 11/09/16 20:00 97.4 65 17 146/65 92 11/09/16 16:00 98.5 70 19 176/75 90 11/09/16 12:00 99.2 65 21 164/72 90 11/09/16 08:00 99.2 65 18 162/70 93 I/O 11/09/16 11/09/16 11/09/16 11/10/16 11/10/16 11/10/16 07:00 15:00 23:00 07:00 15:00 23:00 Intake Total 240 ml 720 ml 240 ml 240 ml Output Total 200 ml 600 ml 300 ml 300 ml Balance 40 ml 120 ml -60 ml -60 ml Intake Oral 240 ml 720 ml 240 ml 240 ml Output Urine Total 200 ml 600 ml 300 ml 300 ml # Voids 2 # Bowel Movements 0 0 0 Objective Remarks Left lower extremity: Pain with motion of hip. No pain with ankle or knee range of motion. Distally intact sensation with good capillary refills. Strong dorsiflexion plantar flexion of foot Assessment & Plan Assessment and Plan 1) left Acetabulum fx with left sup/inf rami fxs -nonop -TTWB -DC planning to rehabilitation then to home in [place] -PT for ambulating -normal diet -xarelto 10mg 1 po daily scheduled Orthopedically cleared for discharge to rehabilitation today If still in town in 2 weeks we will re-x-ray and evaluate acetabulum fracture Manuel Chaudhari Jr. November 10, 2016 06:39
[2016-11-10 08:00] VITALS: BP 178/70; PULSE 63; RESP 18; TEMP 98.6; O2SAT 93
--- NOTE | 2016-11-10 08:11 | HHI.PR ---
Subjective Remarks resting comfortably with no distress. pain is well controlled. dysuria is better. no other complaints. Objective Vitals Vital Signs Date Time Temp Pulse Resp B/P Pulse Ox O2 Delivery O2 Flow Rate FiO2 11/10/16 00:14 18 11/10/16 00:00 98.4 60 17 156/69 92 11/09/16 22:00 Nasal Cannula 1.00 11/09/16 20:00 97.4 65 17 146/65 92 11/09/16 16:00 98.5 70 19 176/75 90 11/09/16 12:00 99.2 65 21 164/72 90 I/O 11/09/16 11/09/16 11/09/16 11/10/16 11/10/16 11/10/16 07:00 15:00 23:00 07:00 15:00 23:00 Intake Total 240 ml 720 ml 240 ml 240 ml Output Total 200 ml 600 ml 300 ml 300 ml Balance 40 ml 120 ml -60 ml -60 ml Intake Oral 240 ml 720 ml 240 ml 240 ml Output Urine Total 200 ml 600 ml 300 ml 300 ml # Voids 2 # Bowel Movements 0 0 0 Imaging Last Impressions Lower Extremity CT 11/04/16 0000 Signed Impressions: Service Date/Time: Friday, November 04, 2016 19:04 - CONCLUSION: Extensive fracturing of the left pelvis including to the superior aspect of the acetabulum with extension to the anterior and posterior column and a separate fracture at the midportion of the inferior pubic rami on the left. Arjun Dyer MD Hip and Pelvis X-Ray 11/04/16 0000 Signed Impressions: Service Date/Time: Friday, November 04, 2016 16:22 - CONCLUSION: 1. Acute fractures involving the left hemipelvis as detailed above. Alexandro Cervantes Jr., MD Objective Remarks GENERAL: elderly male, in no apparent distress. CARDIOVASCULAR: Regular rate and regular rhythm without murmurs, gallops, or rubs. RESPIRATORY: Clear to auscultation. Breath sounds equal bilaterally. No wheezes , rales, or rhonchi. GASTROINTESTINAL: Abdomen soft, non-tender, nondistended. Normal, active bowel sounds MUSCULOSKELETAL: Extremities without clubbing, cyanosis, or edema. NEURO: Alert & Oriented x4 to person, place, time, situation. Moves all ext x4 Procedures none Medications and IVs Current Medications Morphine Sulfate (Morphine Inj) 4 mg ONCE ONCE IV PUSH Last administered on 17:45; Start 11/04/16 at 16:30; Stop 11/04/16 at 16:31; Status DC Ondansetron HCl 4 mg 4 mg ONCE ONCE IV Last administered on 11/04/16 17:45; Start 11/04/16 at 16:30; Stop 11/04/16 at 16:31; Status DC Sodium Chloride (NS 1000 ml Inj) 1,000 ml @ 75 mls/hr [id number] IV Last administered on 11/04/16 19:39; Start 11/04/16 at 19:00; Stop 11/05/16 at 11:24; Status DC Ondansetron HCl (Zofran Inj) 4 mg Q8HR PRN IV PUSH NAUSEA; Start 11/04/16 at 18: 15 Hydromorphone HCl (Dilaudid Pf Inj) 0.2 mg Q4H PRN IV PUSH BREAKTHROUGH PAIN; Start 11/04/16 at 18:30 Hydromorphone HCl (Dilaudid Pf Inj) 0.5 mg Q4H PRN IV PUSH PAIN 6-10 Last administered on 11/05/16 06:17; Start 11/04/16 at 18:30; Stop 11/05/16 at 11:25; Status DC Potassium Chloride (KCl) 20 meq ONCE ONCE PO Last administered on 11/04/16 19: 39; Start 11/04/16 at 18:30; Stop 11/04/16 at 18:31; Status DC Acetaminophen (Tylenol) 650 mg Q4H PRN PO FEVER/ HEADACHE; Start 11/04/16 at 18: 30 Rivaroxaban (Xarelto) 10 mg DAILY PO Last administered on 11/09/16 08:22; Start 11/05/16 at 09:00 Acetaminophen/ Hydrocodone Bitart ([place] 7.5-325 Mg) 1 tab Q4H PRN PO PAIN 1- 5 Last administered on 11/09/16 23:14; Start 11/05/16 at 09:30 Atorvastatin Calcium (Lipitor) 40 mg HS PO Last administered on 11/09/16 20:39 ; Start 11/05/16 at 21:00 Cholecalciferol (Vitamin D3) 2,000 units DAILY PO Last administered on 08:21; Start 11/06/16 at 09:00 Calcium/Vitamin D (Oscal-D 250-125) 2 mg BID PO ; Start 11/05/16 at 21:00; Stop 11/05/16 at 21:52; Status DC Atenolol (Tenormin) 25 mg DAILY PO Last administered on 11/09/16 08:21; Start 11/06/16 at 09:00 Acetaminophen/ Hydrocodone Bitart ([place] 7.5-325 Mg) 2 tab Q4H PRN PO PAIN > 5 Last administered on 11/06/16 08:45; Start 11/05/16 at 11:30 Calcium/Vitamin D (Oscal-D 250-125) 500 mg BID PO Last administered on 20:39; Start 11/05/16 at 22:00 Docusate Sodium (Colace) 100 mg BID PRN PO CONSTIPATION Last administered on 08:21; Start 11/06/16 at 11:00 Magnesium Hydroxide (Milk Of Magnesia Liq) 30 ml DAILY PRN PO CONSTIPATION Last administered on 11/07/16 05:54; Start 11/06/16 at 11:00 Bisacodyl (Dulcolax Supp) 10 mg NOW ONCE RECTAL ; Start 11/07/16 at 11:45; Stop 11/07/16 at 11:46; Status DC Bisacodyl (Dulcolax Supp) 10 mg DAILY PRN RECTAL UNTIL BM; Start 11/07/16 at 11: 45 Miscellaneous Information ALL NURSING DEPARTME... UNSCH PRN .XX SEE LABEL COMMENTS; Start 11/07/16 at 12:00; Stop 11/08/16 at 11:59; Status DC Ciprofloxacin (Cipro) 250 mg Q12HR PO ; Start 11/08/16 at 12:15; Stop 11/08/16 at 14:57; Status DC Nitrofurantoin Macrocrystals (Macrobid) 100 mg BIDPC PO Last administered on 17:42; Start 11/08/16 at 18:00 A/P Assessment and Plan A/P - left hemipelvis fracture after a fall continue with pain control- - ortho consulted and recommended non-op treatment. TTWB- consulted PT- -possible UTI- started on abx- UC with gram negative agustin and yeast. -hypertension; continue atenolol 25 mg daily-amlodipine 5 mg po daily will be resumed. -history of CVA and dyslipidemia hold aspirin; started on xarelto- continue statin -mild hypokalemia; replaced. -DVT prophylaxis with Xarelto-per ortho Discharge Planning previously d/w the family. dc to SNF when arrangements made. see med list. f/u with pcp and ortho. d/w the patient and previously with case management. time spent 35 min. Lisbet Wallace MD November 10, 2016 08:11
[2016-11-10] MEDS ORDERED: MACR100C2 PO (08:12)
[2016-11-10] MEDS ORDERED: FLUC100T2 PO (08:12)
[2016-11-10] MEDS ORDERED: AMLO5TAB2 PO (08:18)
[2016-11-10] MEDS: CHOLECALCIFEROL (VIT D3) 1000 UNIT TAB PO SCH (08:42)
[2016-11-10] MEDS: NITROFURANTOIN MONOHYD MACROCR 100 MG CAP PO SCH ×2 (08:42→17:15)
[2016-11-10] MEDS: ACETAMINOPHEN/HYDROcodone 325 MG/7.5 MG TAB PO PRN ×3 (08:42→17:15)
[2016-11-10] MEDS: CALCIUM/VITAMIN D 250 MG/125 U TAB PO SCH (08:43)
[2016-11-10] MEDS: ATENOLOL 25 MG TAB PO SCH (08:43)
[2016-11-10] MEDS: RIVAROXABAN 10 MG TAB PO SCH (08:43)
[2016-11-10] MEDS ORDERED: amLODIPine BESYLATE 5 MG TAB PO SCH (09:00)
[2016-11-10] MEDS ORDERED: FLUCONAZOLE 100 MG TAB PO SCH (09:00)
[2016-11-10 09:37] VITALS: BP 138/65; PULSE 67
[2016-11-10 12:00] VITALS: BP 135/65; PULSE 62; RESP 18; TEMP 97.2; O2SAT 92
[2016-11-10 16:00] VITALS: BP 155/65; PULSE 57; RESP 18; TEMP 97.1; O2SAT 93
== END 2016-11-10 17:38 | DRG 535 ==
LOC: NEPE 16:00 → NEDA 18:09 → N06A 20:02
PROVIDERS: ADMIT Internal Medicine; ATTEND Internal Medicine
DX: S32.592A Other specified fracture of left pubis, initial encounter for closed fracture (principal); S32.492A Other specified fracture of left acetabulum, initial encounter for closed fracture; I69.354 Hemiplegia and hemiparesis following cerebral infarction affecting left non-dominant side; W18.39XA Other fall on same level, initial encounter; Y93.11 Activity, swimming; Y92.832 Beach as the place of occurrence of the external cause; Y99.9 Unspecified external cause status; J44.9 Chronic obstructive pulmonary disease, unspecified; I10 Essential (primary) hypertension; E78.00 Pure hypercholesterolemia, unspecified; M81.0 Age-related osteoporosis without current pathological fracture; E78.5 Hyperlipidemia, unspecified; E87.6 Hypokalemia; R26.2 Difficulty in walking, not elsewhere classified; R30.0 Dysuria; Z87.891 Personal history of nicotine dependence; Z88.0 Allergy status to penicillin
CPT/HCPCS: 73502; 73700; 80053; 81001; 85025; 85610; 85730; 87077; 87086; 87186; 96374; 96375; J1170; J2270; J2405; J7030